=== PATIENT | female | born 1960 | race African-American/Black ===

== ENCOUNTER 2017-04-17 16:45 | Emergency (ER) | payer BC, OTHER | END 2017-04-17 18:57 | disposition home or self-care (01) | LOC: ER 16:45 | DX: J02.9 Acute pharyngitis, unspecified (principal); F17.200 Nicotine dependence, unspecified, uncomplicated; Z88.2 Allergy status to sulfonamides | CPT/HCPCS: 87070; 87880; 99283; A9270-GY ==